=== PATIENT | female | born 1970 | race Caucasian/White ===

== ENCOUNTER 2017-01-25 23:32 | Emergency (ER) | payer OTHER ==
--- NOTE | 2017-01-26 01:57 | ED NURSING NOTES ---
Clinical Report - Nurses [facility] [address] [place] [address] 01/25/2017 23:32 Patient: PERLITA BLAIR TRIAGE Triage time 00:10. Acuity: LEVEL 4. Chief Complaint: RIGHT NARES FORIEGN BODY. 00:18. Alert. SEPSIS SCREEN: Sepsis Screen. Negative (no infection suspected/documented). --00:19 Efrem Arndt R.N. 00:10 01/26/17. BP: 152/92. HR: 71. RR: 16. O2 saturation: 99% on room air. Temp: 98.5 F (oral). Pain level now: 10/28. --00:19 Efrem Arndt R.N. Weight: 108.8 kg stated. Height/Length: 74 inches Per Patient. BMI: 30.8. --00:17 Efrem Arndt R.N. Medications Lisinopril Oral 10 mg, daily. --00:17 Efrem Arndt R.N. Lipitor Oral 10 mg, daily. --00:17 Efrem Arndt R.N. Medication/allergy information source: the patient. --00:19 Efrem Arndt R.N. Allergies Penicillins. --00:17 Efrem Arndt R.N. History Arrived by private vehicle. Historian: patient. Accompanied by friend. Primary physician ([facility]). Onset. (3-4 days ago). ( Patient reports having a cold about 3 weeks ago was coughing a lot and thinks she may have a cough drop wrapper stuck in her right nare, which has been bothering her more over the last 3 -4 days). 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 PAST MEDICAL HX: Immunizations: up-to-date. Last normal menstrual period- 3 days ago. SOCIAL HX: Never smoker. Occasional alcohol use. No drug use. No infectious disease exposure. ABUSE ASSESSMENT: No report of abuse. FALL RISK ASSESSMENT: Fall risk assessment completed. No fall risk identified. NUTRITIONAL RISK ASSESSMENT: The nutritional risk assessment revealed no deficiencies. FUNCTIONAL ASSESSMENT: Functional assessment: no impairments noted. LEARNING NEEDS ASSESSMENT: The learning needs assessment revealed no barriers. SKIN INTEGRITY ASSESSMENT: Skin integrity risk assessment completed. No skin integrity risk identified. --00:19 Efrem Arndt R.N. PROBLEMS: UTI - Urinary Tract Infection. Pyelonephritis. Hypertension. --00:17 Efrem Arndt R.N. ADDITIONAL SURGERIES: Facial surgery . Tubal Ligation. --00:17 Efrem Arndt R.N. Interventions ID band on patient. To treatment room. --00:19 Efrem Arndt R.N. PHYSICAL ASSESSMENT 00:16. Ambulatory to room. GENERAL / NEURO / PSYCH: Alert. HEENT: No facial asymmetry noted. RESPIRATORY: Respirations not labored. SKIN: Skin is warm and dry. --00:16 Efrem Arndt R.N. NURSING PROGRESS NOTES 00:19. Head of bed elevated. Two patient identifiers checked. Side rails up x 1. Bed placed in lowest position. Brakes of bed on. Patient ready for evaluation- chart flagged. --00:19 Efrem Arndt R.N. 00:22 Patient reomoving jewelery. Patient gowned. --00:25 Efrem Arndt R.N. 00:24. Patient walked to CT with tech. --00:27 Efrem Arndt R.N. Patient walked back to ED from CT with tech. --00:27 Efrem Arndt R.N. 01:58. The patient is calm and resting quietly. GENERAL / NEURO / PSYCH: Alert. Oriented X 4. RESPIRATORY: No respiratory distress. SKIN: Skin is warm and dry. --02:04 Efrem Arndt R.N. DISPOSITION / DISCHARGE Departure time: 02:02. Condition at departure: stable. ( discharge instructions reviewed by Yani BYNUM). No learning barriers present. Discharge instructions provided and reviewed with the patient. Reviewed medication(s) side effects, precautions, dosing and course information. Prescription(s) given to the patient. Patient verbalized understanding. Written instructions provided in Setswana. The patient was discharged home and accompanied by marketing development representative. She left the Emergency Department ambulatory and via private vehicle. Surgical Orderly driving. FALL RISK ASSESSMENT: Fall risk assessment completed. No fall risk identified. --02:03 Efrem Arndt R.N. 01:57 01/26/17. BP: 143/98. HR: 67. RR: 16. O2 saturation: 98% on room air. Pain level now: 09/27. --02:03 Efrem Arndt R.N. Locked/Released at 01/26/2017 5:05 by Efrem Arndt R.N.
--- NOTE | 2017-01-26 01:57 | ED CLINICAL REPORT ---
Clinical Report - Physicians/Mid Levels [facility] [address] [place] [address] 01/25/2017 23:32 Patient: PERLITA BLAIR Time Seen: 0012; initial patient contact. Arrived- By private vehicle. Historian- patient. HISTORY OF PRESENT ILLNESS Chief Complaint: FOREIGN BODY IN NOSE. Since past 3 - 4 days and is still present. It was abrupt in onset and has been constant but is not gone now. Location- right nare. The patient has a foreign body in the right nare. (possible cough drop wrapper). Similar symptoms previously: None. Recent medical care: Not recently seen/assessed. REVIEW OF SYSTEMS No skin rash. All systems otherwise negative, except as recorded above. PAST HISTORY See nurses notes. SOCIAL HISTORY Never smoker. No alcohol use or drug use. No recent travel. Is a local resident. ADDITIONAL NOTES The nursing notes have been reviewed. PHYSICAL EXAM Vital Signs: 01/26/2017 00:10 BP: 152/92. HR: 71. RR: 16. O2 saturation: 99%. Temp: 98.5 F. Pain level now: 4/10. Oxygen saturation normal. Appearance: Alert. No acute distress. Eyes: Eyes normal inspection. ENT: Ears normal. Nose normal. Nose: No active bleeding, dried blood, fresh clots or nasal discharge or mucosal inflammation. No nasal foreign body. Throat: Pharynx normal. No bleeding from nasopharynx. Neck: Normal inspection. Neck supple. CVS: Normal heart rate and rhythm. Heart sounds normal. Respiratory: No respiratory distress. Breath sounds normal. No rales, rhonchi or wheezes. Abdomen: Soft and nontender. No organomegaly. Skin: Skin warm and dry. Normal skin color. No rash. Normal skin turgor. Extremities: Extremities exhibit normal ROM. No lower extremity edema. LABS, X-RAYS, AND EKG CT Face: PROCEDURE: CT SINUS/FACIAL BONES W/O CONT INDICATION: Possible right nasal foreign body. TECHNIQUE: Noncontrast axial images with sagittal and coronal reformations. Preliminary report provided by Criss Olson MD ([employer]). COMPARISON: None. FINDINGS: Paranasal sinuses are clear. Nasal passages appear normal. No evidence of radiopaque foreign body. IMPRESSION: 1. Normal CT of the sinuses and nasal passages. The study was independently viewed by me and interpreted by the radiologist. The study was discussed with the radiologist (via pacs and phone). PROGRESS AND PROCEDURES Course of Care: the patient is a 46-year-old female with no pertinent past medical history presenting for evaluation of foreign body sensation in the nose. No obvious foreign body noted on patient's examination. Patient is resting in bed and in no acute distress. No stridor. No signs of airway compromise at this time. Had a discussion with the patient in regards to her normal evaluation at the bedside. Discussed the patient risks and benefits of further evaluation. Do not have flexible fiberoptic scope. Next best evaluation would be with CT scan of themax face. After reviewing the risks and benefits of the procedure, patient was agreeable to the CT scan. CT scan was ordered. No acute findings noted on patient's examination No mucosal thickening or inflammation noted on scan. Because the patient's negative workup. Emergency department, do not feel patient requires further emergency department evaluation or admission to the hospital. Encouraged patient to continuewith her planned follow up with the ear nose and throat doctor. Patient is a stable outpatient candidate. Discussed with the patient workup here in emergency department including diagnosis, home care, follow-up, and return precautions. All questions have been answered. The patient expressed understanding of these instructions and was agreeable to them. Disposition: Discharged. Condition: good. CLINICAL IMPRESSION 01/26/2017 00:10 BP: 152/92. HR: 71. RR: 16. O2 saturation: 99%. Temp: 98.5 F. Pain level now: 4/10. Hypertensive. Oxygen saturation normal. Nasal foreign body in the right nostril (acute resolved). INSTRUCTIONS Warnings: GENERAL WARNINGS: Return or contact your physician immediately if your condition worsens or changes unexpectedly, if not improving as expected, or if other problems arise. Specifically return if pain, vomiting, bleeding, breathing difficulty or fever. Your Current Medications: CONTINUE TAKING THE FOLLOWING MEDICATIONS: Lipitor Oral : 10 mg daily. Lisinopril Oral : 10 mg daily. Prescription Medications: Prednisone 50 mg: take 1 orally every day for 5 days. Dispense five (5). No refills. Follow-up: Return to the emergency department as needed. Follow up with an ear, nose and throat physician (an dermatologist and dermatopathologist). Call for the next available appointment. Reason for referral: recheck today's concerns. Summary of care provided to patient via paper. Follow up with your doctor in three days. Reason for referral: recheck today's concerns. Summary of care provided to patient via paper. Screening today revealed the patient's blood pressure to be in the hypertensive range. Blood pressure screening was not performed during this visit because the patient has an active diagnosis of hypertension. The patient should follow up with a primary care provider for blood pressure management. Understanding of the discharge instructions verbalized by patient. (Electronically signed by Trever Alvarenga Dr. 01/28/2017 6:08)
--- NOTE | 2017-01-26 01:57 | ED ORDER SUMMARY ---
..... Patient: PERLITA BLAIR OrderSheet [facility] VisitID: [id number] [address] [place] [address] 46y, F Registration Date/Time: 01/25/2017 ORDER SHEET Weight: 108.8 kg (stated) Allergies: Penicillins GENERAL ORDERS: CT Sinus/Facial Bones wo Cont Urgent (00:18 01/26/2017 Chuckie Chan) (0:28 Arnold Lazo) MEDICATION ORDERS: IV FLUIDS: ORDER SHEET NOTES: [Electronically signed by Efrem Arndt R.N. (05:05 01/26/2017)] [Electronically signed by Trever Alvarenga Dr. (06:08 01/28/2017)] [Electronically locked/signed by Efrem Arndt R.N. (05:05 01/26/2017)]
--- NOTE | 2017-01-26 01:57 | ED ORDER SUMMARY ---
..... Patient: PERLITA BLAIR OrderSheet [facility] VisitID: [id number] [address] [place] [address] 46y, F Registration Date/Time: 01/25/2017 ORDER SHEET Weight: 108.8 kg (stated) Allergies: Penicillins GENERAL ORDERS: CT Sinus/Facial Bones wo Cont Urgent (00:18 01/26/2017 Chuckie Chan) (0:28 Arnold Lazo) MEDICATION ORDERS: IV FLUIDS: ORDER SHEET NOTES: [Electronically signed by Efrem Arndt R.N. (05:05 01/26/2017)] [Electronically signed by Trever Alvarenga Dr. (06:08 01/28/2017)] [Electronically locked/signed by Efrem Arndt R.N. (05:05 01/26/2017)]
--- NOTE | 2017-01-26 01:57 | ED NURSING NOTES ---
Clinical Report - Nurses [facility] [address] [place] [address] 01/25/2017 23:32 Patient: PERLITA BLAIR TRIAGE Triage time 00:10. Acuity: LEVEL 4. Chief Complaint: RIGHT NARES FORIEGN BODY. 00:18. Alert. SEPSIS SCREEN: Sepsis Screen. Negative (no infection suspected/documented). --00:19 Efrem Arndt R.N. 00:10 01/26/17. BP: 152/92. HR: 71. RR: 16. O2 saturation: 99% on room air. Temp: 98.5 F (oral). Pain level now: 10/28. --00:19 Efrem Arndt R.N. Weight: 108.8 kg stated. Height/Length: 74 inches Per Patient. BMI: 30.8. --00:17 Efrem Arndt R.N. Medications Lisinopril Oral 10 mg, daily. --00:17 Efrem Arndt R.N. Lipitor Oral 10 mg, daily. --00:17 Efrem Arndt R.N. Medication/allergy information source: the patient. --00:19 Efrem Arndt R.N. Allergies Penicillins. --00:17 Efrem Arndt R.N. History Arrived by private vehicle. Historian: patient. Accompanied by friend. Primary physician ([facility]). Onset. (3-4 days ago). ( Patient reports having a cold about 3 weeks ago was coughing a lot and thinks she may have a cough drop wrapper stuck in her right nare, which has been bothering her more over the last 3 -4 days). 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 PAST MEDICAL HX: Immunizations: up-to-date. Last normal menstrual period- 3 days ago. SOCIAL HX: Never smoker. Occasional alcohol use. No drug use. No infectious disease exposure. ABUSE ASSESSMENT: No report of abuse. FALL RISK ASSESSMENT: Fall risk assessment completed. No fall risk identified. NUTRITIONAL RISK ASSESSMENT: The nutritional risk assessment revealed no deficiencies. FUNCTIONAL ASSESSMENT: Functional assessment: no impairments noted. LEARNING NEEDS ASSESSMENT: The learning needs assessment revealed no barriers. SKIN INTEGRITY ASSESSMENT: Skin integrity risk assessment completed. No skin integrity risk identified. --00:19 Efrem Arndt R.N. PROBLEMS: UTI - Urinary Tract Infection. Pyelonephritis. Hypertension. --00:17 Efrem Arndt R.N. ADDITIONAL SURGERIES: Facial surgery . Tubal Ligation. --00:17 Efrem Arndt R.N. Interventions ID band on patient. To treatment room. --00:19 Efrem Arndt R.N. PHYSICAL ASSESSMENT 00:16. Ambulatory to room. GENERAL / NEURO / PSYCH: Alert. HEENT: No facial asymmetry noted. RESPIRATORY: Respirations not labored. SKIN: Skin is warm and dry. --00:16 Efrem Arndt R.N. NURSING PROGRESS NOTES 00:19. Head of bed elevated. Two patient identifiers checked. Side rails up x 1. Bed placed in lowest position. Brakes of bed on. Patient ready for evaluation- chart flagged. --00:19 Efrem Arndt R.N. 00:22 Patient reomoving jewelery. Patient gowned. --00:25 Efrem Arndt R.N. 00:24. Patient walked to CT with tech. --00:27 Efrem Arndt R.N. Patient walked back to ED from CT with tech. --00:27 Efrem Arndt R.N. 01:58. The patient is calm and resting quietly. GENERAL / NEURO / PSYCH: Alert. Oriented X 4. RESPIRATORY: No respiratory distress. SKIN: Skin is warm and dry. --02:04 Efrem Arndt R.N. DISPOSITION / DISCHARGE Departure time: 02:02. Condition at departure: stable. ( discharge instructions reviewed by Yani BYNUM). No learning barriers present. Discharge instructions provided and reviewed with the patient. Reviewed medication(s) side effects, precautions, dosing and course information. Prescription(s) given to the patient. Patient verbalized understanding. Written instructions provided in Telugu. The patient was discharged home and accompanied by supervisor shuttle veneering. She left the Emergency Department ambulatory and via private vehicle. Molded Parts Inspector driving. FALL RISK ASSESSMENT: Fall risk assessment completed. No fall risk identified. --02:03 Efrem Arndt R.N. 01:57 01/26/17. BP: 143/98. HR: 67. RR: 16. O2 saturation: 98% on room air. Pain level now: 09/27. --02:03 Efrem Arndt R.N. Locked/Released at 01/26/2017 5:05 by Efrem Arndt R.N.
--- NOTE | 2017-01-26 06:16 | DIAGNOSTIC IMAGING REPORT ---
PROCEDURE: CT SINUS/FACIAL BONES W/O CONT INDICATION: Possible right nasal foreign body. TECHNIQUE: Noncontrast axial images with sagittal and coronal reformations. Preliminary report provided by Criss Olson MD ([facility]). COMPARISON: None. FINDINGS: Paranasal sinuses are clear. Nasal passages appear normal. No evidence of radiopaque foreign body. IMPRESSION: 1. Normal CT of the sinuses and nasal passages. 2. Findings discussed with Dr. Trever Alvarenga.
--- NOTE | 2017-01-26 06:16 | DIAGNOSTIC IMAGING REPORT ---
PROCEDURE: CT SINUS/FACIAL BONES W/O CONT INDICATION: Possible right nasal foreign body. TECHNIQUE: Noncontrast axial images with sagittal and coronal reformations. Preliminary report provided by Criss Olson MD ([facility]). COMPARISON: None. FINDINGS: Paranasal sinuses are clear. Nasal passages appear normal. No evidence of radiopaque foreign body. IMPRESSION: 1. Normal CT of the sinuses and nasal passages. 2. Findings discussed with Dr. Trever Alvarenga.
--- NOTE | 2017-01-28 06:08 | ED MED RECONCILIATION SUMMARY ---
Patient: PERLITA BLAIR Medication Reconciliation Report [facility] VisitID: [id number] [address] [place] [address] 46y, F Registration Date/Time: 01/25/2017 Weight: 108.8 kg Height/Length: 74 in. BMI: 30.8 ALLERGIES: Penicillins The patient's Home Medications are listed below: CONTINUE TAKING THE FOLLOWING MEDICATIONS: Lipitor Oral 10 mg, daily Lisinopril Oral 10 mg, daily The source(s) of the original Home Medication information: patient The following Medications were given to the patient in the Emergency Department: None. The following Medications were prescribed to the patient: Prednisone 50 mg: take 1 orally every day for 5 days. Dispense five (5). No refills. -- Trever Alvarenga Dr.
--- NOTE | 2017-01-28 06:08 | ED MED RECONCILIATION SUMMARY ---
Patient: PERLITA BLAIR Medication Reconciliation Report [facility] VisitID: [id number] [address] [place] [address] 46y, F Registration Date/Time: 01/25/2017 Weight: 108.8 kg Height/Length: 74 in. BMI: 30.8 ALLERGIES: Penicillins The patient's Home Medications are listed below: CONTINUE TAKING THE FOLLOWING MEDICATIONS: Lipitor Oral 10 mg, daily Lisinopril Oral 10 mg, daily The source(s) of the original Home Medication information: patient The following Medications were given to the patient in the Emergency Department: None. The following Medications were prescribed to the patient: Prednisone 50 mg: take 1 orally every day for 5 days. Dispense five (5). No refills. -- Trever Alvarenga Dr.
--- NOTE | 2017-01-28 06:08 | ED DISCHARGE INSTRUCTIONS ---
Patient: PERLITA BLAIR General Instructions [facility] VisitID: [id number] [place] [address] 46y, F Registration Date/Time: 01/25/2017 01/26/2017 00:10 BP: 152/92. HR: 71. RR: 16. O2 saturation: 99%. Temp: 98.5 F. Pain level now: 410. Hypertensive. Oxygen saturation normal. Nasal foreign body in the right nostril (acute resolved). INSTRUCTIONS Warnings: GENERAL WARNINGS: Return or contact your physician immediately if your condition worsens or changes unexpectedly, if not improving as expected, or if other problems arise. Specifically return if pain, vomiting, bleeding, breathing difficulty or fever. Your Current Medications: CONTINUE TAKING THE FOLLOWING MEDICATIONS: Lipitor Oral : 10 mg daily. Lisinopril Oral : 10 mg daily. Prescription Medications: Prednisone 50 mg: take 1 orally every day for 5 days. Dispense five (5). No refills. Follow-up: Return to the emergency department as needed. Follow up with an ear, nose and throat physician (an commercial representative). Call for the next available appointment. Reason for referral: recheck today's concerns. Summary of care provided to patient via paper. Follow up with your doctor in three days. Reason for referral: recheck today's concerns. Summary of care provided to patient via paper. Screening today revealed the patient's blood pressure to be in the hypertensive range. Blood pressure screening was not performed during this visit because the patient has an active diagnosis of hypertension. The patient should follow up with a primary care provider for blood pressure management. Understanding of the discharge instructions verbalized by patient. ADDITIONAL INFORMATION Foreign Object In The Nose,Removed [Child] Your child had a foreign object removed from their nose. This can lead to irritation and sometimes causes an infection in the sinuses if the object has been there over 24 hours. In most cases, once the object is removed, swelling goes away and the breathing through the nose becomes normal in 24 hours. Home Care: If prescription medicines were given, use these as directed. Unless another pain medicine was prescribed, you may give acetaminophen (Tylenol) for any pain. Teach your child not to put objects in his/her nose. Follow Up with your physician or this facility as advised. Get Prompt Medical Attention if any of the following occur: Increasing nose or face pain Redness or swelling in the face Continued nasal congestion for more than 24 hours Fever of 100.4F (38C) oral or 101.4F (38.5C) rectal or higher, or as directed by your healthcare provider Fluid, pus or blood draining from the nose Sudden coughing or choking spell Fast breathing ( to 6 wks: over 60 breaths/min.; 6 wk - 2 yr: over 45 breaths/min., 3-6 yr: over 35 breaths/min., 7-10 yrs: over 30 breaths/min., more than 10 yrs: over 25 breaths/min.) Prednisone Oral tablet What is this medicine? PREDNISONE (PRED ni sone) is a corticosteroid. It is commonly used to treat inflammation of the skin, joints, lungs, and other organs. Common conditions treated include asthma, allergies, and arthritis. It is also used for other conditions, such as blood disorders and diseases of the adrenal glands. How should I use this medicine? Take this medicine by mouth with a glass of water. Follow the directions on the prescription label. Take this medicine with food. If you are taking this medicine once a day, take it in the morning. Do not take more medicine than you are told to take. Do not suddenly stop taking your medicine because you may develop a severe reaction. Your doctor will tell you how much medicine to take. If your doctor wants you to stop the medicine, the dose may be slowly lowered over time to avoid any side effects. Talk to your signal worker helper regarding the use of this medicine in children. Special care may be needed. What side effects may I notice from receiving this medicine? Side effects that you should report to your doctor or health manager primary care as soon as possible: allergic reactions like skin rash, itching or hives, swelling of the face, lips, or tongue changes in emotions or moods changes in vision depressed mood eye pain fever or chills, cough, sore throat, pain or difficulty passing urine increased thirst swelling of ankles, feet Side effects that usually do not require medical attention (report to your doctor or health manager primary care if they continue or are bothersome): confusion, excitement, restlessness headache nausea, vomiting skin problems, acne, thin and shiny skin trouble sleeping weight gain What may interact with this medicine? Do not take this medicine with any of the following medications: metyrapone mifepristone This medicine may also interact with the following medications: aminoglutethimide amphotericin B aspirin and aspirin-like medicines barbiturates certain medicines for diabetes, like glipizide or glyburide cholestyramine cholinesterase inhibitors cyclosporine digoxin diuretics ephedrine female hormones, like estrogens and control pills isoniazid ketoconazole NSAIDS, medicines for pain and inflammation, like ibuprofen or naproxen phenytoin rifampin toxoids vaccines warfarin What if I miss a dose? If you miss a dose, take it as soon as you can. If it is almost time for your next dose, talk to your doctor or health manager primary care. You may need to miss a dose or take an extra dose. Do not take double or extra doses without advice. Where should I keep my medicine? Keep out of the reach of children. Store at room temperature between 15 and 30 degrees C (59 and 86 degrees F). Protect from light. Keep container tightly closed. Throw away any unused medicine after the expiration date. What should I tell my health care provider before I take this medicine? They need to know if you have any of these conditions: Rosston's syndrome diabetes glaucoma heart disease high blood pressure infection (especially a virus infection such as chickenpox, cold sores, or herpes) kidney disease liver disease mental illness myasthenia gravis osteoporosis seizures stomach or intestine problems thyroid disease an unusual or allergic reaction to lactose, prednisone, other medicines, foods, dyes, or preservatives or trying to get breast-feeding What should I watch for while using this medicine? Visit your doctor or health manager primary care for regular checks on your progress. If you are taking this medicine over a prolonged period, carry an identification card with your name and address, the type and dose of your medicine, and your doctor's name and address. This medicine may increase your risk of getting an infection. Tell your doctor or health manager primary care if you are around anyone with measles or chickenpox, or if you develop sores or blisters that do not heal properly. If you are going to have surgery, tell your doctor or health manager primary care that you have taken this medicine within the last twelve months. Ask your doctor or health manager primary care about your diet. You may need to lower the amount of salt you eat. This medicine may affect blood sugar levels. If you have diabetes, check with your doctor or health manager primary care before you change your diet or the dose of your diabetic medicine. You have been given the following additional information: Foreign Body, Nose Prednisone Oral tablet (Electronically signed by Trever Alvarenga Dr. 01/28/2017 6:08)
--- NOTE | 2017-01-28 06:08 | ED MAR SUMMARY ---
..... Medication Administration Record [facility] [address] [place], [place] [id number] Patient: PERLITA BLAIR Guillermo Visit ID: [id number] 46y, F Weight: 108.8 kg Height/Length: 74 in BMI: 30.8 ALLERGIES: Penicillins
--- NOTE | 2017-01-28 06:08 | ED MAR SUMMARY ---
..... Medication Administration Record [facility] [address] [place], [place] [id number] Patient: PERLITA BLAIR Guillermo Visit ID: [id number] 46y, F Weight: 108.8 kg Height/Length: 74 in BMI: 30.8 ALLERGIES: Penicillins
--- NOTE | 2017-01-28 06:08 | ED DISCHARGE INSTRUCTIONS ---
Patient: PERLITA BLAIR General Instructions [facility] VisitID: [id number] [place] [address] 46y, F Registration Date/Time: 01/25/2017 01/26/2017 00:10 BP: 152/92. HR: 71. RR: 16. O2 saturation: 99%. Temp: 98.5 F. Pain level now: 410. Hypertensive. Oxygen saturation normal. Nasal foreign body in the right nostril (acute resolved). INSTRUCTIONS Warnings: GENERAL WARNINGS: Return or contact your physician immediately if your condition worsens or changes unexpectedly, if not improving as expected, or if other problems arise. Specifically return if pain, vomiting, bleeding, breathing difficulty or fever. Your Current Medications: CONTINUE TAKING THE FOLLOWING MEDICATIONS: Lipitor Oral : 10 mg daily. Lisinopril Oral : 10 mg daily. Prescription Medications: Prednisone 50 mg: take 1 orally every day for 5 days. Dispense five (5). No refills. Follow-up: Return to the emergency department as needed. Follow up with an ear, nose and throat physician (an tow truck operator). Call for the next available appointment. Reason for referral: recheck today's concerns. Summary of care provided to patient via paper. Follow up with your doctor in three days. Reason for referral: recheck today's concerns. Summary of care provided to patient via paper. Screening today revealed the patient's blood pressure to be in the hypertensive range. Blood pressure screening was not performed during this visit because the patient has an active diagnosis of hypertension. The patient should follow up with a primary care provider for blood pressure management. Understanding of the discharge instructions verbalized by patient. ADDITIONAL INFORMATION Foreign Object In The Nose,Removed [Child] Your child had a foreign object removed from their nose. This can lead to irritation and sometimes causes an infection in the sinuses if the object has been there over 24 hours. In most cases, once the object is removed, swelling goes away and the breathing through the nose becomes normal in 24 hours. Home Care: If prescription medicines were given, use these as directed. Unless another pain medicine was prescribed, you may give acetaminophen (Tylenol) for any pain. Teach your child not to put objects in his/her nose. Follow Up with your physician or this facility as advised. Get Prompt Medical Attention if any of the following occur: Increasing nose or face pain Redness or swelling in the face Continued nasal congestion for more than 24 hours Fever of 100.4F (38C) oral or 101.4F (38.5C) rectal or higher, or as directed by your healthcare provider Fluid, pus or blood draining from the nose Sudden coughing or choking spell Fast breathing ( to 6 wks: over 60 breaths/min.; 6 wk - 2 yr: over 45 breaths/min., 3-6 yr: over 35 breaths/min., 7-10 yrs: over 30 breaths/min., more than 10 yrs: over 25 breaths/min.) Prednisone Oral tablet What is this medicine? PREDNISONE (PRED ni sone) is a corticosteroid. It is commonly used to treat inflammation of the skin, joints, lungs, and other organs. Common conditions treated include asthma, allergies, and arthritis. It is also used for other conditions, such as blood disorders and diseases of the adrenal glands. How should I use this medicine? Take this medicine by mouth with a glass of water. Follow the directions on the prescription label. Take this medicine with food. If you are taking this medicine once a day, take it in the morning. Do not take more medicine than you are told to take. Do not suddenly stop taking your medicine because you may develop a severe reaction. Your doctor will tell you how much medicine to take. If your doctor wants you to stop the medicine, the dose may be slowly lowered over time to avoid any side effects. Talk to your geography head regarding the use of this medicine in children. Special care may be needed. What side effects may I notice from receiving this medicine? Side effects that you should report to your doctor or health healthcare market consultant as soon as possible: allergic reactions like skin rash, itching or hives, swelling of the face, lips, or tongue changes in emotions or moods changes in vision depressed mood eye pain fever or chills, cough, sore throat, pain or difficulty passing urine increased thirst swelling of ankles, feet Side effects that usually do not require medical attention (report to your doctor or health healthcare market consultant if they continue or are bothersome): confusion, excitement, restlessness headache nausea, vomiting skin problems, acne, thin and shiny skin trouble sleeping weight gain What may interact with this medicine? Do not take this medicine with any of the following medications: metyrapone mifepristone This medicine may also interact with the following medications: aminoglutethimide amphotericin B aspirin and aspirin-like medicines barbiturates certain medicines for diabetes, like glipizide or glyburide cholestyramine cholinesterase inhibitors cyclosporine digoxin diuretics ephedrine female hormones, like estrogens and control pills isoniazid ketoconazole NSAIDS, medicines for pain and inflammation, like ibuprofen or naproxen phenytoin rifampin toxoids vaccines warfarin What if I miss a dose? If you miss a dose, take it as soon as you can. If it is almost time for your next dose, talk to your doctor or health healthcare market consultant. You may need to miss a dose or take an extra dose. Do not take double or extra doses without advice. Where should I keep my medicine? Keep out of the reach of children. Store at room temperature between 15 and 30 degrees C (59 and 86 degrees F). Protect from light. Keep container tightly closed. Throw away any unused medicine after the expiration date. What should I tell my health care provider before I take this medicine? They need to know if you have any of these conditions: Bruno's syndrome diabetes glaucoma heart disease high blood pressure infection (especially a virus infection such as chickenpox, cold sores, or herpes) kidney disease liver disease mental illness myasthenia gravis osteoporosis seizures stomach or intestine problems thyroid disease an unusual or allergic reaction to lactose, prednisone, other medicines, foods, dyes, or preservatives or trying to get breast-feeding What should I watch for while using this medicine? Visit your doctor or health healthcare market consultant for regular checks on your progress. If you are taking this medicine over a prolonged period, carry an identification card with your name and address, the type and dose of your medicine, and your doctor's name and address. This medicine may increase your risk of getting an infection. Tell your doctor or health healthcare market consultant if you are around anyone with measles or chickenpox, or if you develop sores or blisters that do not heal properly. If you are going to have surgery, tell your doctor or health healthcare market consultant that you have taken this medicine within the last twelve months. Ask your doctor or health healthcare market consultant about your diet. You may need to lower the amount of salt you eat. This medicine may affect blood sugar levels. If you have diabetes, check with your doctor or health healthcare market consultant before you change your diet or the dose of your diabetic medicine. You have been given the following additional information: Foreign Body, Nose Prednisone Oral tablet (Electronically signed by Trever Alvarenga Dr. 01/28/2017 6:08)
== END 2017-01-26 02:00 | disposition home or self-care (01) ==
LOC: ED SRH 23:32
DX: T17.1XXA Foreign body in nostril, initial encounter (principal); X58.XXXA Exposure to other specified factors, initial encounter; Y93.9 Activity, unspecified; Y99.9 Unspecified external cause status; Y92.9 Unspecified place or not applicable